=== PATIENT | female | born 1995 | race Two or more races ===

== ENCOUNTER 2017-10-04 23:11 | Emergency (ER) | payer SELFPAY ==
[~2017-10-04] VITALS: Ht 160 cm; Wt 55.8 kg
[2017-10-04 23:17] VITALS: BP 103/73
[2017-10-04] MEDS ORDERED: diphenhydrAMINE HCL 25 MG CAPSULE ONE (23:39)
[2017-10-04] MEDS ORDERED: FAMOTIDINE (20 MG) 20 MG TABLET ONE (23:39)
[2017-10-05] MEDS ORDERED: diphenhydrAMINE HCL 25 MG CAPSULE PO ONE
[2017-10-05] MEDS ORDERED: FAMOTIDINE (20 MG) 20 MG TABLET PO ONE
== END 2017-10-04 23:40 | disposition home or self-care (01) ==
LOC: ER 23:16
DX: L53.8 Other specified erythematous conditions (principal); T50.995A Adverse effect of other drugs, medicaments and biological substances, initial encounter; Y92.89 Other specified places as the place of occurrence of the external cause
CPT/HCPCS: 99283; A4606; Q0163; Z7610

== ENCOUNTER 2018-02-07 16:49 | Emergency (ER) | payer SELFPAY ==
[~2018-02-07] VITALS: Ht 160 cm; Wt 59.0 kg
[2018-02-07 17:01] VITALS: BP 133/74
== END 2018-02-07 18:48 | disposition home or self-care (01) ==
LOC: ER 16:53
DX: J02.8 Acute pharyngitis due to other specified organisms (principal); B97.89 Other viral agents as the cause of diseases classified elsewhere
CPT/HCPCS: 86403-TC; 87070-TC; A4606; Z7610